=== PATIENT | male | born 1955 | race Caucasian/White ===

== ENCOUNTER → 2016-08-09 | Outpatient (CLI) | payer MEDICARE ==
[~2016-08-09] MED LIST: ALBUTEROL0.09 MG/A1 INH; ALDACTONE25 MG PO; ASPIRIN ADULT L81 M1 PO; ASPIRIN81 M1 PO; BUSPAR5 MG PO; CAPOTEN12.5 MG PO; CAPTOPRIL25 MG PO; CARVEDILOL12.5 MG PO; CELEXA20 MG PO; COREG12.5 M1 PO; COREG3.125 MG PO; COREG6.25 MG PO; DAYPRO600 M1 PO; FUROSEMIDE80 MG PO; LISINOPRIL10 MG PO; OXYCODONE5 M1 PO; PLAVIX75 M1 PO; PLAVIX75 MG PO; SIMVASTATIN40 MG PO; TYLENOL325 M1 PO; VENTOLIN0.09 MG/AC IH; VICODIN 500 MG-1 TAB PO; WARFARIN SODIU7.5 MG PO; WARFARIN SODIUM5 MG PO; ZOCOR40 MG PO
[2016-08-09 15:31] LABS: HEMOGLOBIN 14.3 g/dl (14.0-18.0)
[2016-08-09 16:08] LABS: ALBUMIN 3.6 gm/dl (3.1-4.5); ALKALINE PHOSPHATASE 72 U/L (45-117); BUN 12 mg/dl (7-24); CARBON DIOXIDE 27 mmol/L (21-32); CHLORIDE 108 mmol/L (98-107); CHOLESTEROL 105 mg/dL (<200); EST GLOM FILT AFRICAN AMERICAN > 60 ml/min; GLUCOSE 99 mg/dL (65-99); HDL CHOLESTEROL 51 mg/dl (40-60); LDL CHOLESTEROL 38 mg/dL (9-159); POTASSIUM 4.5 mmol/L (3.5-5.1); SGOT/AST 32 IU/L (3-35); SGPT/ALT 42 U/L (12-78); SODIUM 141 mmol/L (136-145); TOTAL PROTEIN 7.3 gm/dL (6.4-8.2); TRIGLYCERIDES 82 mg/dl (<150); VLDL CHOLESTEROL 16 mg/dL (6-40)
== END | disposition home or self-care (01) ==
LOC: LAB 14:47
PROVIDERS: Internal Medicine Cardiovascular Disease
DX: Z12.5 Encounter for screening for malignant neoplasm of prostate (principal); I25.5 Ischemic cardiomyopathy; I25.10 Atherosclerotic heart disease of native coronary artery without angina pectoris; R06.02 Shortness of breath; Z98.61 Coronary angioplasty status